=== PATIENT | male | born 1935 | race Caucasian/White ===

== ENCOUNTER 2018-08-04 00:54 | Inpatient (IN) | payer MEDICARE, OTHER ==
[~2018-08-04] VITALS: Ht 170.2 cm; Wt 100.6 kg
[~2018-08-04 00:54] MED LIST: ACET500 PO; ASCO1ER PO; ASPI81CH PO; BACITO TP; BUME2 PO; CALC.25 PO; CHOL10002 PO; DOCU100 PO; FISH1000 PO; FLUO10 PO; FLUO20 PO; FURO40 PO; FURO80 PO; IBUP800 PO; INSULANPEN SC; LEVFLO500 PO; METO5 PO; METOLAZONE; MIDO5 PO; MULVITA PO; Micro-K10 MEQ PO; OMEGA 3 PO; OMEP20ER PO; PARI1 PO; POTA10T PO; POTCHL10ER PO; POTCHL20ER PO; PRAV40 PO; PREVASTATIN PO; Prilosec Otc20 MG PO; SIMV40 PO; SPIR50 PO; THERAPEUTIC-M1 EAC3 PO; Vitamin C100 M1 PO; WARF5 PO; WARF6 PO
[2018-08-04 02:20] LABS: BASOPHILS ABSOLUTE AUTO 0.04 K/mm3 (0.00-0.23); BASOPHILS PERCENT AUTO 1 % (0-2); EOSINOPHILS ABSOLUTE AUTO 0.18 K/mm3 (0.00-0.68); EOSINOPHILS PERCENT AUTO 2 % (0-6); Hematocrit 34.5 % (37.0-53.0); Hemoglobin 11.4 g/dL (13.5-17.5); IMMATURE GRAN ABSOLUTE AUTO 0.03 K/mm3 (0.00-0.10); IMMATURE GRAN PERCENT AUTO 0 % (0-1); LYMPHOCYTES ABSOLUTE AUTO 0.53 K/mm3 (0.84-5.20); LYMPHOCYTES PERCENT AUTO 6 % (21-46); MONOCYTES ABSOLUTE AUTO 0.66 K/mm3 (0.16-1.47); MONOCYTES PERCENT AUTO 8 % (4-13); Mean Corpuscular HGB 32.6 pg (26.0-34.0); Mean Corpuscular Volume 99 fL (80-100); Mean Platelet Volume 9.9 fL (9.1-12.4); NEUTROPHILS ABSOLUTE AUTO 7.31 K/mm3 (1.96-9.15); NEUTROPHILS PERCENT AUTO 84 % (41-73); Platelet Count 177 K/mm3 (150-400); RDW Coefficient Variation 12.2 % (11.7-14.2); RDW Standard Deviation 44.2 fL (35.1-46.3); White Blood Cell Count 8.75 K/mm3 (4.00-11.30)
[2018-08-04 02:42] LABS: Albumin/Globulin Ratio 0.9 (0.8-1.8); Bilirubin, Total 0.3 mg/dL (0.1-1.0); Bun/Creatinine Ratio 8.6 (12.0-20.0); Calcium, Blood 7.9 mg/dL (8.5-10.1); Creatinine, Blood 3.61 mg/dL (0.60-1.20); Globulin, Blood 3.5 g/dL (2.2-4.0); Potassium, Blood 3.1 mmol/L (3.5-5.5); Total Protein, Blood 6.5 g/dL (6.4-8.2)
[2018-08-04 07:20] LABS: Hematocrit 31.9 % (37.0-53.0); Hemoglobin 10.7 g/dL (13.5-17.5); Mean Corpuscular HGB 33.5 pg (26.0-34.0); Mean Corpuscular HGB Conc 33.5 g/dL (31.5-36.5); Mean Corpuscular Volume 100 fL (80-100); Mean Platelet Volume 10.2 fL (9.1-12.4); Platelet Count 175 K/mm3 (150-400); RDW Standard Deviation 44.6 fL (35.1-46.3); Red Blood Cell Count 3.19 M/mm3 (4.30-5.90); White Blood Cell Count 11.84 K/mm3 (4.00-11.30)
--- NOTE | 2018-08-04 07:49 | NUR ---
PT ADMITTED FROM ED FOR R HIP FX. A&0 X4. ON ROOM AIR. TELE IN PLACE. TACHY AT 108. PAIN MANAGED WITH 50 MCG OF FENTANYL. BEDREST AND NPO. URINAL AT BEDSIDE. FLUIDS INFUSING. CALL LIGHT IN REACH.
[2018-08-04 07:50] LABS: Albumin, Blood 2.8 g/dL (3.4-5.0); Albumin/Globulin Ratio 0.8 (0.8-1.8); Bilirubin, Total 0.3 mg/dL (0.1-1.0); Bun/Creatinine Ratio 8.8 (12.0-20.0); Calcium, Blood 7.9 mg/dL (8.5-10.1); Creatinine, Blood 3.98 mg/dL (0.60-1.20); Globulin, Blood 3.3 g/dL (2.2-4.0); Potassium, Blood 3.3 mmol/L (3.5-5.5); Total Protein, Blood 6.1 g/dL (6.4-8.2)
--- NOTE | 2018-08-04 08:00 | NUR ---
ELEVATED CO2 DR. ORR NOTIFIED OF ELEVATED CO2 WITH AM LABS. NO NOTED CHANGE IN PT'S CONDITION. WILL CONTINUE TO MONITOR.
[2018-08-04 10:14] LABS: Albumin, Blood 2.8 g/dL (3.4-5.0); Anion Gap 7 mmol/L (6-16); Blood Urea Nitrogen 36 mg/dL (8-24); Bun/Creatinine Ratio 8.8 (12.0-20.0); CO2, Blood 34 mmol/L (21-32); Calcium, Blood 7.6 mg/dL (8.5-10.1); Chloride, Blood 98 mmol/L (98-108); Creatinine, Blood 4.09 mg/dL (0.60-1.20); Glomerular Filtration Rate 15 (60-); Glucose, Blood 156 mg/dL (70-99); Magnesium, Blood 2.1 mg/dL (1.6-2.4); Potassium, Blood 3.6 mmol/L (3.5-5.5); Sodium, Blood 139 mmol/L (136-145)
--- NOTE | 2018-08-04 10:49 | NUR ---
RETURNED CALL TO PT'S SPOUSE. UPDATED HER ON PLAN OF CARE.
--- NOTE | 2018-08-04 11:45 | NUR ---
FROM SURGICAL FLOOR ROOM 218 TO SDS ADMISSION STARTED TO UNIT VSS CBG DONE
--- NOTE | 2018-08-04 14:31 | NUR ---
08/04/18 1431 Twyla Zhou A PATIENT GIVEN 600MG CLINDAMYCIN AT 1333 BEFORE START OF CASE.0.5% BUPIVICAINE PULLED TO BE USED AT END OF CASE.
--- NOTE | 2018-08-04 19:29 | NUR ---
SHIFT SUMMARY PT ARRIVED BACK TO ROOM POST OP AT 1700. PT ALERT AND ORIENTED AT TIME OF ARRIVAL TO THE ROOM. DRESSING IN PLACE TO R HIP C/D/I. PT DENIES PAIN. VSS. REPORT GIVEN TO ELINOR GARCIA.
--- NOTE | 2018-08-05 01:48 | NUR ---
0110 REPORT RECIEVED FROM RN, CL. PT IN BED EYES CLOSED, QUITE, EVEN WOB. CALL LIGHT IN REACH.
[2018-08-05 05:13] LABS: Hematocrit 27.5 % (37.0-53.0); Hemoglobin 9.2 g/dL (13.5-17.5)
[2018-08-05 05:30] LABS: Albumin, Blood 2.6 g/dL (3.4-5.0); Anion Gap 9 mmol/L (6-16); Blood Urea Nitrogen 48 mg/dL (8-24); Bun/Creatinine Ratio 9.4 (12.0-20.0); CO2, Blood 29 mmol/L (21-32); Calcium, Blood 7.5 mg/dL (8.5-10.1); Chloride, Blood 99 mmol/L (98-108); Creatinine, Blood 5.09 mg/dL (0.60-1.20); Glomerular Filtration Rate 12 (60-); Glucose, Blood 149 mg/dL (70-99); Magnesium, Blood 2.1 mg/dL (1.6-2.4); Phosphorus, Blood 3.7 mg/dL (2.5-4.9); Potassium, Blood 3.6 mmol/L (3.5-5.5); Sodium, Blood 137 mmol/L (136-145)
--- NOTE | 2018-08-05 07:54 | NUR ---
SHIFT SUMMARY RECEIVED REPORT ON PT APPROX 0100 FROM RN, CL. POD#1 R HIP FX. NOTED ON ASSESMENT; DRESSING CDI. PAIN MANGED PER EMAR. PT DENIES N/T IN EXT, NAUSEA, SOB AND CP. LS CLEAR BILAT. PPPX4. NO ACUTE CHANGES. TELEMETRY IN PLACE; SR, BBB WITH PVC'S PER GENERATOR OPERATOR. A&O X4. CALL LIGHT IN REACH. REPORT GIVEN TO DAY SHIFT RN.
--- NOTE | 2018-08-05 09:43 | NUR ---
PT TAKEN TO DIALYSIS AT THIS TIME.
--- NOTE | 2018-08-05 18:47 | NUR ---
SHIFT SUMMARY PAIN HAS BEEN MANAGED WITH PO PAIN MEDICATION. PT TOLERATED THERAPY WELL THIS AFTERNOON AND IS A 1 PERSON MODERATE ASSIST. PT HAD DIALYSIS TODAY. VSS. WILL MONITOR UNTIL REPORT TO ONCOMING RN.
[2018-08-06 05:55] LABS: Hematocrit 27.2 % (37.0-53.0); Hemoglobin 8.9 g/dL (13.5-17.5)
[2018-08-06 06:13] LABS: Albumin, Blood 2.6 g/dL (3.4-5.0); Anion Gap 10 mmol/L (6-16); Blood Urea Nitrogen 46 mg/dL (8-24); Bun/Creatinine Ratio 8.9 (12.0-20.0); CO2, Blood 29 mmol/L (21-32); Calcium, Blood 7.9 mg/dL (8.5-10.1); Chloride, Blood 99 mmol/L (98-108); Creatinine, Blood 5.19 mg/dL (0.60-1.20); Glomerular Filtration Rate 11 (60-); Glucose, Blood 98 mg/dL (70-99); Magnesium, Blood 2.2 mg/dL (1.6-2.4); Phosphorus, Blood 4.5 mg/dL (2.5-4.9); Sodium, Blood 138 mmol/L (136-145)
--- NOTE | 2018-08-06 07:26 | NUR ---
recvd report from previous shift rn summer, pt sleeping in room, bed in lowest position, call light wihtin reach, bedrais up x 2
--- NOTE | 2018-08-06 08:40 | NUR ---
OT working with pt
--- NOTE | 2018-08-06 10:00 | NUR ---
physical therapy working with pt
[2018-08-07 05:38] LABS: Hematocrit 25.7 % (37.0-53.0); Hemoglobin 8.5 g/dL (13.5-17.5)
[2018-08-07 06:04] LABS: Albumin, Blood 2.4 g/dL (3.4-5.0); Anion Gap 10 mmol/L (6-16); Blood Urea Nitrogen 59 mg/dL (8-24); Bun/Creatinine Ratio 9.7 (12.0-20.0); CO2, Blood 26 mmol/L (21-32); Calcium, Blood 7.4 mg/dL (8.5-10.1); Chloride, Blood 99 mmol/L (98-108); Creatinine, Blood 6.07 mg/dL (0.60-1.20); Glomerular Filtration Rate 9 (60-); Glucose, Blood 93 mg/dL (70-99); Magnesium, Blood 2.2 mg/dL (1.6-2.4); Phosphorus, Blood 4.8 mg/dL (2.5-4.9); Potassium, Blood 3.8 mmol/L (3.5-5.5); Sodium, Blood 135 mmol/L (136-145)
--- NOTE | 2018-08-07 07:24 | NUR ---
NO CHANGES SINCE START OF SHIFT. SAFETY MEASURES IN PLACE. HAND OFF GIVEN TO Doreen MORFIN RN USING SBAR.
--- NOTE | 2018-08-07 11:42 | NUR ---
PT CONT TO BE HAVING DIALYSIS. PT RECIEVING UNIT OF BLOOD DURING DIALYSIS.
--- NOTE | 2018-08-07 12:30 | NUR ---
DISCHARGE: PT DISCHARGED TO [facility] REPORT BEEN GIVEN. FAMILY HERE. PT EATING AND DRINKING. VÁSQUEZ IN PLACE. DRESSING CHANGED EARLIER TODAY. FAMILY REPORTS HAVING BELONGINGS. PAPERWORK AND SCRIPT SENT WITH TRANSPORT.
--- NOTE | 2018-08-07 13:37 | NUR ---
DISCHARGE: PT EATING AND DRINKING. HAD DIALYSIS TODAY. PT VOIDING SMALL AMTS. PASSING GAS. REPORTS RECENT BM. PAIN CONTROLLED ON PO PAIN MEDICATION. DRESSING REPORTED TO BE CHANGED YESTERDAY. PT WORKED WITH THERAPY. PT BEING DISCHARGED TO [facility] REPORT BEEN GIVEN EARLIER TODAY. PT HAS NO IV IN PLACE. PT REPORTS NO BELONGINGS HERE. PAPERWORK AND SCRIPT WELL DRESSING SENT WITH PT/TRANSPORT.
== END 2018-08-07 13:36 | DRG 480 ==
LOC: ER 00:54 → SURS 02:33 → ER 03:01 → SURS 03:01
PROVIDERS: Emergency Medicine; Internal Medicine Nephrology; Orthopaedic Surgery; ADMIT Internal Medicine
PROC: 0QS636Z Reposition Right Upper Femur with Intramedullary Internal Fixation Device, Percutaneous Approach (ICD-10-PCS; principal; 2018-08-04 12:30)
DX: S72.001A Fracture of unspecified part of neck of right femur, initial encounter for closed fracture (principal); N18.6 End stage renal disease; I12.0 Hypertensive chronic kidney disease with stage 5 chronic kidney disease or end stage renal disease; E11.22 Type 2 diabetes mellitus with diabetic chronic kidney disease; Z99.2 Dependence on renal dialysis; Z79.4 Long term (current) use of insulin; G47.33 Obstructive sleep apnea (adult) (pediatric)
CPT/HCPCS: 36415; 36430; 71045; 73502; 80053; 80069; 82947; 83735; 85014; 85018; 85025; 85027; 86850; 86900; 86901; 86923; 93005; 93010; 96374; 96375; 97110; 97116; 97162; 97166; 97530; 99285-25; C1713; J0690; J0881; J1100; J1650; J2370; J2405; J2550; J3010; J3480; J7030; J7040; P9016

== ENCOUNTER 2019-04-11 12:56 | Emergency (ER) | payer MEDICARE, OTHER ==
[~2019-04-11] VITALS: Ht 172.7 cm; Wt 90.7 kg
== END 2019-04-11 14:47 | disposition home or self-care (01) ==
LOC: ER 12:56
DX: S09.90XA Unspecified injury of head, initial encounter (principal); Z88.2 Allergy status to sulfonamides; Z79.899 Other long term (current) drug therapy; Z79.82 Long term (current) use of aspirin; W18.09XA Striking against other object with subsequent fall, initial encounter
CPT/HCPCS: 70450; 99284-25; A9270

== ENCOUNTER 2020-01-06 16:33 | Emergency (ER) | payer MEDICARE, OTHER ==
[~2020-01-06] VITALS: Ht 172.7 cm; Wt 90.7 kg
[2020-01-06 18:54] LABS: BASOPHILS ABSOLUTE AUTO 0.07 K/mm3 (0.00-0.23); BASOPHILS PERCENT AUTO 1 % (0-2); EOSINOPHILS ABSOLUTE AUTO 0.45 K/mm3 (0.00-0.68); EOSINOPHILS PERCENT AUTO 4 % (0-6); IMMATURE GRAN PERCENT AUTO 1 % (0-1); LYMPHOCYTES PERCENT AUTO 17 % (21-46); MONOCYTES ABSOLUTE AUTO 1.08 K/mm3 (0.16-1.47); MONOCYTES PERCENT AUTO 10 % (4-13); Mean Corpuscular HGB 35.4 pg (26.0-34.0); Mean Corpuscular HGB Conc 33.3 g/dL (31.5-36.5); Mean Corpuscular Volume 106 fL (80-100); Mean Platelet Volume 10.3 fL (9.1-12.4); NEUTROPHILS ABSOLUTE AUTO 7.06 K/mm3 (1.96-9.15); NEUTROPHILS PERCENT AUTO 67 % (41-73); Platelet Count 195 K/mm3 (150-400); RDW Coefficient Variation 12.5 % (11.7-14.2); Red Blood Cell Count 3.11 M/mm3 (4.30-5.90); White Blood Cell Count 10.56 K/mm3 (4.00-11.30)
[2020-01-06 19:05] LABS: Albumin, Blood 3.1 g/dL (3.4-5.0); Albumin/Globulin Ratio 0.9 (0.8-1.8); Bilirubin, Total 0.4 mg/dL (0.1-1.0); Bun/Creatinine Ratio 8.5 (12.0-20.0); Calcium, Blood 8.8 mg/dL (8.5-10.1); Creatinine, Blood 5.76 mg/dL (0.60-1.20); Globulin, Blood 3.6 g/dL (2.2-4.0); Potassium, Blood 3.4 mmol/L (3.5-5.5); Total Protein, Blood 6.7 g/dL (6.4-8.2)
[2020-01-06 20:29] LABS: Magnesium, Blood 2.2 mg/dL (1.6-2.4); Phosphorus, Blood 5.3 mg/dL (2.5-4.9)
== END 2020-01-06 21:35 | disposition short-term general hospital (02) ==
LOC: ER 16:33
PROVIDERS: Emergency Medicine
DX: S32.592A Other specified fracture of left pubis, initial encounter for closed fracture (principal); S32.402A Unspecified fracture of left acetabulum, initial encounter for closed fracture; I12.0 Hypertensive chronic kidney disease with stage 5 chronic kidney disease or end stage renal disease; N18.6 End stage renal disease; E11.22 Type 2 diabetes mellitus with diabetic chronic kidney disease; Z88.2 Allergy status to sulfonamides; Z88.8 Allergy status to other drugs, medicaments and biological substances; Z79.82 Long term (current) use of aspirin; Z79.899 Other long term (current) drug therapy; Z79.4 Long term (current) use of insulin; Z99.2 Dependence on renal dialysis; W18.30XA Fall on same level, unspecified, initial encounter
CPT/HCPCS: 36415; 71045; 73080; 73502; 73700; 76377; 80053; 83735; 84100; 85025; 93005; 93010; 96374; 96376; 99285-25; J3010

== ENCOUNTER 2020-04-18 17:05 | Inpatient (IN) | payer MEDICARE, OTHER ==
[~2020-04-18] VITALS: Ht 175.3 cm; Wt 102.0 kg
[~2020-04-18 17:05] MED LIST changes: -ASPI81CH PO; +Aspirin EC81 MG PO
[2020-04-18 18:23] LABS: Alanine Aminotransfer (ALT/SGP 27 U/L (12-78); Albumin, Blood 2.2 g/dL (3.4-5.0); Albumin/Globulin Ratio 0.7 (0.8-1.8); Alk Phos 134 U/L (50-136); Anion Gap 4 mmol/L (6-16); Aspartate Aminotrans (AST/SGOT 29 U/L (12-37); Bilirubin, Total 0.3 mg/dL (0.1-1.0); Blood Urea Nitrogen 17 mg/dL (8-24); Bun/Creatinine Ratio 11.3 (12.0-20.0); CO2, Blood 36 mmol/L (21-32); Calcium, Blood 8.9 mg/dL (8.5-10.1); Chloride, Blood 99 mmol/L (98-108); Globulin, Blood 3.3 g/dL (2.2-4.0); Glomerular Filtration Rate 47 (60-); Glucose, Blood 68 mg/dL (70-99); Magnesium, Blood 1.9 mg/dL (1.6-2.4); Potassium, Blood 4.1 mmol/L (3.5-5.5); Sodium, Blood 139 mmol/L (136-145); Total Protein, Blood 5.5 g/dL (6.4-8.2); Troponin I <0.015 ng/mL (0.000-0.040)
[2020-04-18 18:53] LABS: BASOPHILS ABSOLUTE AUTO 0.03 K/mm3 (0.00-0.23); BASOPHILS PERCENT AUTO 1 % (0-2); EOSINOPHILS ABSOLUTE AUTO 0.11 K/mm3 (0.00-0.68); EOSINOPHILS PERCENT AUTO 3 % (0-6); Hematocrit 31.2 % (37.0-53.0); IMMATURE GRAN PERCENT AUTO 0 % (0-1); LYMPHOCYTES ABSOLUTE AUTO 0.62 K/mm3 (0.84-5.20); LYMPHOCYTES PERCENT AUTO 16 % (21-46); MONOCYTES ABSOLUTE AUTO 0.76 K/mm3 (0.16-1.47); MONOCYTES PERCENT AUTO 20 % (4-13); Mean Corpuscular HGB 32.4 pg (26.0-34.0); Mean Corpuscular HGB Conc 32.1 g/dL (31.5-36.5); Mean Corpuscular Volume 101 fL (80-100); Mean Platelet Volume 10.6 fL (9.1-12.4); NEUTROPHILS ABSOLUTE AUTO 2.29 K/mm3 (1.96-9.15); NEUTROPHILS PERCENT AUTO 60 % (41-73); Platelet Count 96 K/mm3 (150-400); RDW Coefficient Variation 16.5 % (11.7-14.2); RDW Standard Deviation 61.1 fL (35.1-46.3); Red Blood Cell Count 3.09 M/mm3 (4.30-5.90); White Blood Cell Count 3.81 K/mm3 (4.00-11.30)
[2020-04-18 20:14] LABS: Phosphorus, Blood 2.1 mg/dL (2.5-4.9)
[2020-04-18] MEDS ORDERED: OXYC5 PO (21:50)
[2020-04-18] MEDS ORDERED: ACET325 PO (21:51)
[2020-04-18] MEDS ORDERED: Calcium Acetat667 MG PO (21:52)
[2020-04-18] MEDS ORDERED: SERT100 PO (21:53)
[2020-04-18] MEDS ORDERED: RAME8 PO (21:54)
[2020-04-18] MEDS ORDERED: PANT40 PO (21:55)
[2020-04-18] MEDS ORDERED: Vitamin D2000 UNIT PO (21:58)
[2020-04-18 23:29] LABS: PCO2 Arterial 55.3 mmHg (35-45); PO2 Arterial 83.9 mmHg (80-100); pH Blood Arterial 7.44 (7.35-7.45)
--- NOTE | 2020-04-19 00:35 | NUR ---
ADMISSION PT CAME TO PCU FROM THE ER AT APPROX 2140 VIA STRETCHER, SLIDING TRANSFER. PT WAS ALERT. ANSWERED SOME QUESTIONS APPROPRIATELY. VSS. SP02 >92% ON RA. RESPIRATORY WITH PT, PLACED A CPAP MASK ON. 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 HR 57. DR. HENDERSON AND PASTORAL COUNSELOR BRUNO IN ROOM TO ASSESS PT. PT BLOOD GLUCOSE WAS 59. GAVE DEXTROSE 50% PER EMAR. BG INCREASED TO 92. 20G IN UPPER RIGHT ARM, FLUSHES NICELY. PT NOTED TO BE EDEMATOUS IN ALL EXTREMETIES, R ARM WEEPING. KNEE HIGH VINAY HOSE IN PLACE. 1 LT BROWN/RUST, UNFORMED BM DURING ADMISSION. DRY ATTENDS IN PLACE. CALL LIGHT IN REACH. WILL CONTINUE TO MONITOR UNTIL END OF SHIFT.
[2020-04-19 03:54] LABS: Hematocrit 28.3 % (37.0-53.0); Mean Corpuscular HGB 32.4 pg (26.0-34.0); Mean Corpuscular HGB Conc 31.8 g/dL (31.5-36.5); Mean Corpuscular Volume 102 fL (80-100); Mean Platelet Volume 10.5 fL (9.1-12.4); Platelet Count 83 K/mm3 (150-400); RDW Coefficient Variation 16.7 % (11.7-14.2); Red Blood Cell Count 2.78 M/mm3 (4.30-5.90); White Blood Cell Count 3.89 K/mm3 (4.00-11.30)
[2020-04-19 04:18] LABS: Albumin, Blood 1.9 g/dL (3.4-5.0); Anion Gap 5 mmol/L (6-16); Blood Urea Nitrogen 22 mg/dL (8-24); Bun/Creatinine Ratio 10.6 (12.0-20.0); CO2, Blood 36 mmol/L (21-32); Calcium, Blood 8.7 mg/dL (8.5-10.1); Chloride, Blood 96 mmol/L (98-108); Creatinine, Blood 2.08 mg/dL (0.60-1.20); Glomerular Filtration Rate 33 (60-); Glucose, Blood 69 mg/dL (70-99); Phosphorus, Blood 2.6 mg/dL (2.5-4.9); Potassium, Blood 3.4 mmol/L (3.5-5.5); Sodium, Blood 137 mmol/L (136-145)
[2020-04-19 04:38] LABS: BASOPHILS PERCENT MAN 0 % (0-2); EOSINOPHILS ABSOLUTE MAN 0.07 K/mm3 (0.00-0.68); EOSINOPHILS PERCENT MAN 2 % (0-6); LYMPHOCYTES ABSOLUTE MAN 0.46 K/mm3 (0.84-5.20); LYMPHOCYTES PERCENT MAN 12 % (21-46); MONOCYTES ABSOLUTE MAN 0.23 K/mm3 (0.16-1.47); MONOCYTES PERCENT MAN 6 % (4-13); NEUTROPHILS ABSOLUTE MAN 3.11 K/mm3 (1.96-9.15); SEG NEUTROPHILS PERCENT MAN 80 % (41-73); TOTAL CELLS COUNTED 100
--- NOTE | 2020-04-19 05:33 | NUR ---
END OF SHIFT SUMMARY PT ALERT THIS SHIFT, ORIENTED TO SELF. SP02 >92% ON RA. PT WORE CPAP AND SLEPT T/O THE SHIFT. TELEMETRY READS SINUS ASHLEY WITH A 1ST DEGREE BLOCK AND BUNDLE BRANCH BLOCK, HR 46. PT IS NPO. Q2H GLUCOSE. PT HAD 2 LOW GLUCOSE RESULTS DURING THIS SHIFT. MEDICATED WITH DEXTROSE 50% PER EMAR. BLADDER SCAN DONE PER ORDER, SHOWED 91 mL. PT HAD 2 INCONTINENT, RUST COLORED, UNFORMED BMS THIS SHIFT. DRY ATTENDS IN PLACE. Q2H TURNS. BED ALARM ON. CALL LIGHT IN REACH. WILL CONTINUE TO MONITOR UNTIL END OF SHIFT.
--- NOTE | 2020-04-19 07:38 | NUR ---
ASSUMED CARE AT 0700, REPORT FROM RADHA FENG. LAYING SUPINE IN BED IN LOW FOWLERS. AWAKES TO VERBAL STIMULI, ANSWERS QUESTIONS. A/A/OX2. D10 INFUSING AT 50ML/HR. THIGH HIGH VINAY HOSE IN PLACE. VSS, WILL CONTINUE Q2 CHEMBG UNTIL BLOOD SUGAR >100 X2. BEDREST AT THIS TIME, WILL CONTINUE Q2 TURNS.
--- NOTE | 2020-04-19 14:16 | NUR ---
RESTING IN BED NAPPING. WAKES TO VERBAL STIMULI, ANSWERS QUESTIONS APPROPRIATLY. NO APPARENT DISTRESS.
--- NOTE | 2020-04-19 15:10 | NUR ---
PT IN DIALYSIS FROM APPROX [id number].
--- NOTE | 2020-04-19 18:07 | NUR ---
SHIFT SUMMARY; A/A/OX3, DIAYLSIS COMPLETE TODAY. D10 CONTINUED AT 50ML/HR PER ORDERS. Q2 CHEMBG'S DURING SHIFT. BILATERAL VINAY HOSE IN PLACE. GOOD APPETITE IN AFTERNOON AND EVENING. FEEDS SELF WITHOUT DIFFICULTY. BLADDER SCANS DURING SHIFT, NO CATH NEEDED ON SHIFT. Q 2 REPOSITIONING MAINTAINED, WILL CONTINUE TO MONITOR AND TREAT UNTIL CHANGE OF SHIFT.
[2020-04-20 04:05] LABS: BASOPHILS ABSOLUTE AUTO 0.02 K/mm3 (0.00-0.23); BASOPHILS PERCENT AUTO 1 % (0-2); EOSINOPHILS ABSOLUTE AUTO 0.15 K/mm3 (0.00-0.68); EOSINOPHILS PERCENT AUTO 4 % (0-6); Hematocrit 31.6 % (37.0-53.0); Hemoglobin 9.9 g/dL (13.5-17.5); IMMATURE GRAN ABSOLUTE AUTO 0.01 K/mm3 (0.00-0.10); IMMATURE GRAN PERCENT AUTO 0 % (0-1); LYMPHOCYTES ABSOLUTE AUTO 0.49 K/mm3 (0.84-5.20); LYMPHOCYTES PERCENT AUTO 12 % (21-46); MONOCYTES ABSOLUTE AUTO 0.71 K/mm3 (0.16-1.47); MONOCYTES PERCENT AUTO 17 % (4-13); Mean Corpuscular HGB 32.5 pg (26.0-34.0); Mean Corpuscular HGB Conc 31.3 g/dL (31.5-36.5); Mean Corpuscular Volume 104 fL (80-100); NEUTROPHILS ABSOLUTE AUTO 2.77 K/mm3 (1.96-9.15); NEUTROPHILS PERCENT AUTO 67 % (41-73); Platelet Count 83 K/mm3 (150-400); RDW Coefficient Variation 17.1 % (11.7-14.2); RDW Standard Deviation 65.8 fL (35.1-46.3); Red Blood Cell Count 3.05 M/mm3 (4.30-5.90); White Blood Cell Count 4.15 K/mm3 (4.00-11.30)
[2020-04-20 04:20] LABS: Albumin, Blood 2.1 g/dL (3.4-5.0); Anion Gap 1 mmol/L (6-16); Blood Urea Nitrogen 19 mg/dL (8-24); Bun/Creatinine Ratio 9.1 (12.0-20.0); CO2, Blood 39 mmol/L (21-32); Calcium, Blood 8.4 mg/dL (8.5-10.1); Chloride, Blood 97 mmol/L (98-108); Creatinine, Blood 2.09 mg/dL (0.60-1.20); Glomerular Filtration Rate 32 (60-); Glucose, Blood 106 mg/dL (70-99); Magnesium, Blood 2.1 mg/dL (1.6-2.4); Phosphorus, Blood 2.8 mg/dL (2.5-4.9); Potassium, Blood 3.4 mmol/L (3.5-5.5); Sodium, Blood 137 mmol/L (136-145)
--- NOTE | 2020-04-20 06:26 | NUR ---
END OF SHIFT SUMMARY NO ACUTE CHANGES THIS SHIFT. PT ALERT, ANSWERS SOME QUESTIONS APPROPRIATELY. SP02 >94% ON RA. PT WORE CPAP WHILE SLEEPING AND SLEPT T/O THE NIGHT. TEMELETRY READS SINUS ASHLEY WITH 1ST DEGREE BLOCK AND BBB. HR 50'S. BLADDER SCAN DONE PER ORDERS, SHOWED 120 mLS. D10 INFUSING PER EMAR. Q2H CBG CHECKS NOW Q4H PER ORDER D/T CBG'S > 100. CALL LIGHT IN REACH. WILL CONTINUE TO MONITOR.
--- NOTE | 2020-04-20 12:20 | NUR ---
REASSESSMENT PT RETURNED FROM DIALYSIS. PT IS ALERT REMAINS ORIENTED X1. FAMILY IS AT BEDSIDE CURRENTLY AND REPORTS PT'S COGNITION IS GREATLY IMPROVED FROM WHEN HE CAME IN. D10 INFUSION STOPPED PER ORDERS, PT CURRENTLY EATING LUNCH. VITALS ARE STABLE, ASSESSMENT REMAINS MOSTLY UNCHANGED.
--- NOTE | 2020-04-20 17:51 | NUR ---
SHIFT SUMMARY PT IS ALERT TO PERSON, PER FAMILY PT IS MORE RESPONSIVE TODAY. PT DID RECEIVE DIAYLSIS TODAY. 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 PT HAS BEEN ON ROOM AIR AND NO USE OF BIPAP. CBG HAS BEEN IN 80'S-90'S AND D10 INFUSION WAS STOPPED TODAY. PT HAS HAD GOOD APPETITE AND IS ABLE TO FEED HIMSELF.
[2020-04-21 04:11] LABS: Hematocrit 31.9 % (37.0-53.0); Hemoglobin 9.9 g/dL (13.5-17.5)
[2020-04-21 04:26] LABS: Magnesium, Blood 2.1 mg/dL (1.6-2.4)
[2020-04-21 04:31] LABS: Albumin, Blood 2.3 g/dL (3.4-5.0); Anion Gap 1 mmol/L (6-16); Blood Urea Nitrogen 22 mg/dL (8-24); Bun/Creatinine Ratio 8.7 (12.0-20.0); CO2, Blood 38 mmol/L (21-32); Calcium, Blood 8.5 mg/dL (8.5-10.1); Chloride, Blood 101 mmol/L (98-108); Creatinine, Blood 2.54 mg/dL (0.60-1.20); Glomerular Filtration Rate 26 (60-); Glucose, Blood 49 mg/dL (70-99); Phosphorus, Blood 3.2 mg/dL (2.5-4.9); Potassium, Blood 3.7 mmol/L (3.5-5.5); Sodium, Blood 140 mmol/L (136-145)
--- NOTE | 2020-04-21 05:51 | NUR ---
BLOOD GLUCOSE BEGINNING OF , CBG STABLE. WITH 0356 POCT, CBG LEVEL 43, PT ASYMPTOMATIC. PT GIVEN ORANGE JUICE X'S 2 CUPS. WITH AM LAB AT 0402, CBG 49. RECHECKED AT 0431, LEVEL RISEN TO 0431. PT EATING APPLESAUCER AT THE TIME. WITH 0544, LEVEL 66. PT CONTINUES TO BE ASYMPTOMATIC. PT EATING YOGURT AT THIS TIME.
--- NOTE | 2020-04-21 05:55 | NUR ---
END OF SHIFT SUMMARY SEE BLOOD GLUCOSE NOTE. PT CONTINUES WITH ALERT AND ORIENTED X1-2. ANSWERNG SOME QUESTIONS BUT MORE TIMES THAN NOT, PT SHAKES HEAD/NODS TO ANSWERS. REMAINS SR BBB 1ST DEGREE HB. BP STABLE. RECEIVED MIDODRINE ORDERED. REMAINS ON RA. HAS HAD MULTIPLE INCONTINENT BM'S THIS SHIFT. R ARM SWELLING STILL NOTED. POWERGLIDE REMAINS PATENT AT THIS TIME BUT IS QUITE POSITIONAL. PT BEING REPOSITIONED BY STAFF. WILL CONTINUE TO MONITOR UNTIL SHIFT CHANGE.
--- NOTE | 2020-04-21 07:42 | NUR ---
ASSUMED CARE OF PT AT 0700. CBG WAS FOUND TO BE 51. PT IS ALERT AND AWAKE, JUICE GIVEN TO PT. DR MOORE AND SUBHASH NOTIFIED. ORDERS RECEIVED FOR Q2 CBG AND TO GIVE BREAKFAST TRAY KAMRON.
--- NOTE | 2020-04-21 17:42 | NUR ---
SHIFT SUMMARY PT IS ALERT AND ORIENTED TO PERSON. THIS MORNING PT WAS HYPOGLYCEMIC AND CBG'S HAVE IMPROVED AND BEEN 80'S-90'S TODAY. LAB ORDERS RECEIVED TODAY TO DRAW IF PT BECOMES HYPOGLYCEMIC AGAIN. LAB BAG READY OUTSIDE PT'S ROOM. TELEMETERY HAS SHOWN PT TO BE SINUS ASHLEY WITH 1ST DEGRE BBB. VITALS HAVE BEEN STABLE. LAST DIALYSIS WAS YESTERDAY. POWERGLIDE WAS POSITIONAL, ADJUSTED AND DRESSING CHANGED TODAY. FAMILY EXPRESSED CONCERNS ABOUT THE CARE AT [facility] AND IS REQUESTING PT BE DISCHARGED HOME.
--- NOTE | 2020-04-21 18:23 | NUR ---
1800 CBG WAS NOTED TO BE 42, HAD PCT RECHECK AND CBG WAS 50. PT WAS EATING DINNER AT TIME OF CBG CHECK. LABS DRAWN PER ORDERS. DR CULLEN NOTIFIED OF HYPOGLYMIA. WILL RECHECK CBG AFTER PT FINISHES DINNER.
[2020-04-22 03:48] LABS: Hematocrit 30.6 % (37.0-53.0); Hemoglobin 9.5 g/dL (13.5-17.5)
[2020-04-22 04:01] LABS: Albumin, Blood 2.2 g/dL (3.4-5.0); Anion Gap 1 mmol/L (6-16); Blood Urea Nitrogen 27 mg/dL (8-24); CO2, Blood 38 mmol/L (21-32); Calcium, Blood 8.6 mg/dL (8.5-10.1); Chloride, Blood 99 mmol/L (98-108); Creatinine, Blood 3.39 mg/dL (0.60-1.20); Glomerular Filtration Rate 18 (60-); Glucose, Blood 87 mg/dL (70-99); Magnesium, Blood 2.3 mg/dL (1.6-2.4); Phosphorus, Blood 4.3 mg/dL (2.5-4.9); Potassium, Blood 4.1 mmol/L (3.5-5.5); Sodium, Blood 138 mmol/L (136-145)
--- NOTE | 2020-04-22 05:24 | NUR ---
END OF SHIFT SUMMARY P CONTINUES WOITH AXO X2 BUT SEEMS TO HAVE IMPROVED FROM PREVIOUS NOC SHIFT. PT HAS HAD CRITICAL LOW BLOOD GLUCOSES THIS SHIFT. 1 AMP OF D50 ADMINISTERED AND PT THEN STARTED ON D10 GTT. SINCE THIS ADMINISTRATION, BLOOD GLUCOSES HAVE STABILIZED. PT ASYMPTOMATIC TO ALL OF THESE EPISODES. HAS BEEN OFF OF CPAP OFF AND ON T/O SHIFT. INCONTINENT BM'S HAVE DECREASED SIGNIFICANTLY. POWERGLIDE FLUSHING WELL AND PULLING BLOOD EASILY. OTHRWISE, PT RESTING IN ROOM OFF AND ON, BED IN LOW POSITION AND BED ALARM ON. WILL CONTINUE TO MONITOR UNTIL SHIFT CHANGE.
--- NOTE | 2020-04-22 07:22 | NUR ---
CHEMBG 202004/21/2020 CHEMBG POCT SHOWS CRITICAL LO <10. THIS RESULT SHOWS ON PORTABLE UNIT BUT [facility]
--- NOTE | 2020-04-22 17:50 | NUR ---
SHIFT SUMMARY PT IS ALERT AND ORIENTED TO PERSON. DIALYSIS WAS DONE TODAY WITH 3.5L FLUID REMOVED. CBG HAVE BEEN 70'S-120'S TODAY WITH 100%MEAL CONSUMPTION AND ON D10W INFUSION. BP'S WERE LOWER AFTER DIALYSIS, CONTINUED SCHEDUALED MIDORINE. RIGHT ARM CONTINUES TO BE EDEMATOUS AND WHEEPING, GENERALIZED EDEMA 2+. OTHER VITALS HAVE BEEN STABLE TODAY EXCEPT WHERE NOTED. TELEMETERY HAS SHOWN PT TO BE SINUS ASHLEY W/1ST DEGREE AVB BBB.
[2020-04-23 03:54] LABS: BASOPHILS ABSOLUTE AUTO 0.04 K/mm3 (0.00-0.23); BASOPHILS PERCENT AUTO 1 % (0-2); EOSINOPHILS ABSOLUTE AUTO 0.14 K/mm3 (0.00-0.68); EOSINOPHILS PERCENT AUTO 3 % (0-6); Hematocrit 28.4 % (37.0-53.0); Hemoglobin 8.8 g/dL (13.5-17.5); IMMATURE GRAN ABSOLUTE AUTO 0.01 K/mm3 (0.00-0.10); IMMATURE GRAN PERCENT AUTO 0 % (0-1); LYMPHOCYTES ABSOLUTE AUTO 0.69 K/mm3 (0.84-5.20); LYMPHOCYTES PERCENT AUTO 16 % (21-46); MONOCYTES ABSOLUTE AUTO 0.52 K/mm3 (0.16-1.47); MONOCYTES PERCENT AUTO 12 % (4-13); Mean Corpuscular HGB 32.5 pg (26.0-34.0); Mean Corpuscular Volume 105 fL (80-100); Mean Platelet Volume 11.2 fL (9.1-12.4); NEUTROPHILS ABSOLUTE AUTO 2.85 K/mm3 (1.96-9.15); NEUTROPHILS PERCENT AUTO 67 % (41-73); Platelet Count 62 K/mm3 (150-400); RDW Coefficient Variation 16.9 % (11.7-14.2); RDW Standard Deviation 65.2 fL (35.1-46.3); Red Blood Cell Count 2.71 M/mm3 (4.30-5.90); White Blood Cell Count 4.25 K/mm3 (4.00-11.30)
[2020-04-23 04:08] LABS: Albumin, Blood 2.8 g/dL (3.4-5.0); Bilirubin, Total 0.3 mg/dL (0.1-1.0); Bun/Creatinine Ratio 7.1 (12.0-20.0); Calcium, Blood 8.7 mg/dL (8.5-10.1); Creatinine, Blood 3.08 mg/dL (0.60-1.20); Globulin, Blood 2.7 g/dL (2.2-4.0); Magnesium, Blood 2.3 mg/dL (1.6-2.4); Phosphorus, Blood 4.1 mg/dL (2.5-4.9); Potassium, Blood 4.1 mmol/L (3.5-5.5); Total Protein, Blood 5.5 g/dL (6.4-8.2)
--- NOTE | 2020-04-23 05:28 | NUR ---
SHIFT SUMMARY PT WAS AWAKE MOST OF THE NIGHT AND ABLE TO ANSWER SIMPLE YES/NO QUESTIONS WITH SOME DELAY, AND SPEECH IS DIFFICULT TO UNDERSTAND. GENERALIZED EDEMA WAS LESS THAN PREVIOUS NOC SHIFT 04/21 AT 2+ IN LOWER EXT AND WEEPING IN UPPER BODY. BLOOD GLUCOSE WAS STABLE AROUND 80-100, PT WAS ON D10 DRIP T/O NIGHT. HR WAS STABLE, BP WAS HYPOTENSIVE AT START OF SHIFT STABILIZING AROUND 115 SYSTOLIC BY AM. WILL CONTINUE TO MONITOR UNTIL SHIFT CHANGE.
[2020-04-23 08:08] LABS: C-PEPTIDE, SERUM 2.9 ng/mL (1.1-4.4)
--- NOTE | 2020-04-23 13:30 | NUR ---
Met with Mrs. Blank at bedside, with RN present also. Questions answered and options for care discussed with . We reviewed Juan Alberto's current status after her visit with Dr's, goals of care, wishes for comfort and home care with hospice expressed by . Pt has been on [facility] previously and would like [facility]. DME will need to be set up prior to d/c home. We discussed comfort care vs cont limited care and dialysis until d/c so pt has greater chance of getting home with family for EOL care. reports she has family members who will be helping her. She cared for her parents and siblings and a [facility] w/home hospice support and is well acquainted with it. Pt will need a Hospital bed and overbed table. He is not producing urine but did have a BM today. I do not believe will be able to transfer to a [facility] and attends use at home would be safest for pt/caregivers. I updated search engine marketing specialist, and CM on 's wishes and plans of care. VO obtained and entered for DNR status, hospice referral and Roxanol sl prn pain. Pt's described nonverbal indicators that tell her pt is hurting. Pt is exhibiting the clenching of face and hard squinting of eyes and grimacing while I visited. He also has frequent spastic/jerking neuromuscular activity/movement noted. It does not appear to be an aggitation but more involuntary movement. seems comfortable and confident in her decision re: goals of care. Support offered. Planned with her to visit tomorrow or at any time she would like to talk further. RN present for entire visit also.
--- NOTE | 2020-04-23 18:01 | NUR ---
SHIFT SUMMARY PT ALERT AND AWAKE, BUT NOT ANSWERING QUESTIONS. VS STABLE. O2 SATS REMAIN ABOVE 90% ON RA. BP STABLE. PT HAVING DIFFICULTY SWALLOWING THIS AFTERNOON AND SPEECH EVALUATION ORDERED. ASPIRATION PRECAUTIONS IN PLACE. CBG HAVE BEEN STABLE. D10 GTT DISCONTINUED AT APPROXIMATELY 1200 TODAY. PT INCONTINENT OF BOWEL THIS AFTERNOON. PT MEDICATED FOR PAIN NEEDED. PALLIATIVE CARE IN TO VISIT WITH PT AND FAMILY SEE ZULEIMA GARCIA NOTE. CODE STATUS CHANGED TO DNR. BED ALARM ON. PT REPOSITIONED Q2H AND MORE FREQUENTLY NEEDED. WILL CONTINUE TO MONITOR CLOSELY AND REPORT TO ONCOMING RN.
[2020-04-24 05:26] LABS: Hematocrit 27.3 % (37.0-53.0); Hemoglobin 8.4 g/dL (13.5-17.5)
--- NOTE | 2020-04-24 05:44 | NUR ---
END OF SHIFT SUMMARY PT CONTINUES WITH SAME LOC. OFF AND ON CPAP/RA. INCONTINENT OF BOWELS. BEGINNING OF SHIFT, PT WITHOUT FLUIDS INFUSING. WITH BLOOD GLUCOSE CHECKS, IT WAS NOTED THAT PT'S BLOOD GLUCOSE WAS DROPPING AND WOULD NOT AMINTAIN WITHOUT INTERVENTION. DR POLK, PLACED BACK ON D10W GTT @ 50MLS/HR. BLOOD GLUCOSE LEVELS HAVE MAINTAINED SINCE THEN IN THE 60'S TO 90'S. PT HAS HAD INSTANCES OF SEVERE HOTN BUT THESE HAVE SUBSIDED W/OUT INTERVENTION. WEEPING CONTINUES TO TO BOTH ARMS. POWERGLIDE HAS BECOME POSITIONAL, PLAC TO CHANGE DRESSING AGAIN THIS SHIFT. WILL CONTINUE TO MONITOR UNTIL SHIFT CHANGE.
[2020-04-24 05:46] LABS: Albumin, Blood 2.7 g/dL (3.4-5.0); Anion Gap 4 mmol/L (6-16); Blood Urea Nitrogen 27 mg/dL (8-24); Bun/Creatinine Ratio 6.9 (12.0-20.0); CO2, Blood 35 mmol/L (21-32); Calcium, Blood 8.8 mg/dL (8.5-10.1); Chloride, Blood 95 mmol/L (98-108); Creatinine, Blood 3.93 mg/dL (0.60-1.20); Glomerular Filtration Rate 16 (60-); Glucose, Blood 58 mg/dL (70-99); Magnesium, Blood 2.6 mg/dL (1.6-2.4); Phosphorus, Blood 4.5 mg/dL (2.5-4.9); Potassium, Blood 4.4 mmol/L (3.5-5.5); Sodium, Blood 134 mmol/L (136-145)
--- NOTE | 2020-04-24 08:58 | NUR ---
Pal Care visit and case conf with RNST and Dr. Ferro. Pt has had difficulty during the night maintaining blood sugars. POC remains unchanged until d/c home with hospice when routine care outside of comfort care will be d/c'd. Pt appears more comfortable today, without writhing/grunting. Some other non- verbal pain indicators still noted & freq tremor/shaking remain present. RN had medicated with 5 mg Roxanol prn per eMar with good results yesterday. RN will page me when returns for follow up visit. Pal Care to remain available for support and s/s assessment/management.
--- NOTE | 2020-04-24 09:00 | NUR ---
UPDATE ASSUMED CARE OF PT AT APPROXIMATELY 0730. PT ALERT AND AWAKE, BUT NOT ANSWERING QUESTIONS OR RESPONDING VERBALLY. VS STABLE. O2 SATS REMAIN ABOVE 90% ON RA. PALLIATIVE CARE AND CARE MANAGEMENT IN THE PROCESS OF SETTING UP HOME HOSPICE. PLAN FOR THE PT TO BE DISCHARGED AT 1300 TO HOME HOSPICE. WILL CONTINUE TO MONITOR CLOSELY.
[2020-04-24] MEDS ORDERED: MORP20L SL (10:16)
[2020-04-24] MEDS ORDERED: Ativan1 MG PO (10:16)
--- NOTE | 2020-04-24 13:09 | NUR ---
DISCHARGE TRANSPORT HERE TO TAKE PT HOME. DISCHARGE INSTRUCTIONS SENT WITH PT ALONG WITH WRITTEN SCRIPTS. INSTRUCTIONS HAVE BEEN COMMUNICATED TO PT .
[2020-04-26 08:09] LABS: FREE INSULIN 3.8 uU/mL (.); TOTAL INSULIN 3.8 uU/mL (.)
== END 2020-04-24 13:10 | disposition home or self-care (01) | DRG 871 ==
LOC: ER 17:05 → PCU 17:06
PROVIDERS: Emergency Medicine; Hospitalist; Internal Medicine; Internal Medicine Nephrology; Nurse Practitioner Acute Care; ADMIT Internal Medicine
PROC: 5A1D70Z Performance of Urinary Filtration, Intermittent, Less than 6 Hours Per Day (ICD-10-PCS; principal; 2020-04-19)
DX: A41.9 Sepsis, unspecified organism (principal); G92 Toxic encephalopathy; J18.9 Pneumonia, unspecified organism; N18.6 End stage renal disease; D61.818 Other pancytopenia; I12.0 Hypertensive chronic kidney disease with stage 5 chronic kidney disease or end stage renal disease; E11.22 Type 2 diabetes mellitus with diabetic chronic kidney disease; D63.1 Anemia in chronic kidney disease; Z99.2 Dependence on renal dialysis; I95.9 Hypotension, unspecified; G47.33 Obstructive sleep apnea (adult) (pediatric); Z51.5 Encounter for palliative care; E87.6 Hypokalemia
CPT/HCPCS: 36415; 36600; 70450; 71045; 76705; 80053; 80069; 82140; 82607; 82746; 82803; 82947; 83525; 83527; 83605; 83735; 83880; 84100; 84145; 84206; 84484; 84681; 85007; 85014; 85018; 85025; 85027; 87040; 92526; 92610; 93005; 93010; 93306; 94660; 94762; 96365; 96375; 96376; 99285-25; A9270; A9270-GY; C1751; G0378; J0456; J0696; J0881; J2543; J7050; J7799; P9046; U0002